=== PATIENT | male | born 1950 | race Caucasian/White ===

== ENCOUNTER 2017-07-30 11:28 | Observation (INO) | payer MEDICARE ==
[~2017-07-30] VITALS: Ht 177.8 cm; Wt 87.1 kg
[2017-07-30 11:58] LABS: HEMATOCRIT 42.8 % (39.0-50.0); HEMOGLOBIN 14.4 g/dl (14.0-18.0); IMMATURE GRANULOCYTES 0.5 % (0.0-1.0); MEAN CELL VOLUME 89.4 fL CALC (80.0-100.0); MEAN CORPUSCULAR HGB 30.1 pG CALC (26.0-32.0); MEAN CORPUSCULAR HGB CONC 33.6 g/L CALC (32.0-36.0); NEUT# 2.76 thou/uL (1.82-7.42); RED BLOOD COUNT 4.79 mill/uL (4.70-6.10); RED CELL DISTRI WIDTH 12.4 % (11.5-15.5)
[2017-07-30] MEDS ORDERED: ENALAPRIL20 MG PO (12:05)
[2017-07-30 12:06] LABS: ANION GAP 14 (6-22 (CALC)); BUN 18 mg/dL (8-23); BUN/CREATININE RATIO 17 (12-20 (CALC)); CALCIUM 9.9 mg/dL (8.4-10.2); CARBON DIOXIDE 27 mmol/l (22-30); CHLORIDE 108 mmol/l (95-108); CREATININE 1.1 mg/dL (0.7-1.3); GFR > 60 ML/MIN (>=60 (CALC)); GFR FOR AFR.AMER. > 60 ML/MIN (>=60 (CALC)); GLUCOSE 109 mg/dL (82-115); POTASSIUM 4.3 mmol/l (3.5-5.1); SODIUM 144 mmol/l (137-146)
[2017-07-30] MEDS ORDERED: LIPITOR20 MG PO (12:06)
[2017-07-30] MEDS ORDERED: ALLOPURINOL100 MG PO (12:06)
[2017-07-30 13:55] VITALS: BP 151/77
[2017-07-30 15:11] VITALS: BP 128/74
[2017-07-30 19:10] VITALS: BP 152/77
[2017-07-30 23:45] VITALS: BP 152/77
[2017-07-31 00:01] VITALS: BP 153/80
[2017-07-31 05:39] VITALS: BP 128/68
[2017-07-31 08:59] VITALS: BP 151/77
[2017-07-31 09:02] VITALS: BP 151/77
[2017-07-31] MEDS ORDERED: ASPIRIN CHEWABL81 MG PO (09:54)
[2017-07-31] MEDS ORDERED: ALLOPURINOL100 MG PO (09:54)
== END 2017-07-31 10:50 | disposition home or self-care (01) ==
LOC: ED 11:28 → ED-I 12:29 → ED 12:29 → MS2 12:46
PROVIDERS: Family Medicine; ADMIT Internal Medicine; ATTEND Internal Medicine
DX: R07.9 Chest pain, unspecified (principal); I16.0 Hypertensive urgency; I10 Essential (primary) hypertension; E78.5 Hyperlipidemia, unspecified; M10.9 Gout, unspecified; G62.9 Polyneuropathy, unspecified; Z82.49 Family history of ischemic heart disease and other diseases of the circulatory system; Z87.891 Personal history of nicotine dependence